=== PATIENT | male | born 1940 | race Caucasian/White ===

== ENCOUNTER → 2017-10-31 | Outpatient (CLI) | payer OTHER ==
[~2017-10-31] MED LIST: ASPIRIN81 M1 PO; CLOBETASOL PROP60 GM TP; COLACE100 MG PO; DEXILANT60 MG PO; ENDOCET 5-3251 EACH PO; FLEXERIL10 MG PO; LIPITOR80 MG PO; LYRICA200 MG PO; METAMUCIL POWD822 G1 PO; NAMENDA XR21 MG PO; OMEPRAZOLE40 M1 PO; ONE DAILY FOR1 EACH PO; STOOL SOFTENER100 M1 PO; STOOL SOFTENER240 MG PO
== END | disposition home or self-care (01) ==
LOC: AMB 07:41
PROC: 03BS0ZX Excision of Right Temporal Artery, Open Approach, Diagnostic (ICD-10-PCS; principal; 2017-10-31)
DX: R51 Headache (principal)
CPT/HCPCS: 88305; 88313

== ENCOUNTER 2018-03-20 04:35 | Emergency (ER) | payer OTHER ==
[~2018-03-20] VITALS: Ht 188 cm; Wt 113.9 kg
[2018-03-20 05:40] LABS: ALBUMIN 4.2 g/dL (3.2-4.8); CHLORIDE 105 mEq/L (99-109); POTASSIUM 4.5 mEq/L (3.7-5.4); SODIUM 142 mEq/L (136-147)
[2018-03-20 05:42] LABS: GLUCOSE 123 mg/dL (70-99); TOTAL PROTEIN 7.1 g/dL (6.4-8.3)
[2018-03-20 05:44] LABS: TOTAL BILIRUBIN 0.4 mg/dL (0.0-1.0)
[2018-03-20 05:46] LABS: ALKALINE PHOSPHATASE 136 IU/L (3-129); CREATININE 1.1 mg/dL (0.6-1.3); GFR ESTIMATE (CALCULATED) > 59 mL/min/ (58.99-99999)
[2018-03-20 05:46] LABS: HEMATOCRIT 44.3 % (38.0-50.0); MCH 32.4 PG (29.0-34.0); MCHC 33.9 G/DL (30.0-36.0); MCV 95.7 FL (86-99); PLATELET COUNT 186 K/uL (156-360); RBC DIS.WIDTH-CV 13.5 % (11.8-14.6); RBC DIS.WIDTH-SD 47.8 % (39-53); RED BLOOD COUNT 4.63 M/uL (4.00-5.50); WHITE BLOOD COUNT 11.8 K/uL (4.1-10.2)
[2018-03-20 05:47] LABS: UREA NITROGEN (BUN) 16 mg/dL (9-23)
[2018-03-20 05:48] LABS: AST (GOT) 23 IU/L (2-34)
[2018-03-20 05:49] LABS: ALT (GPT) 21 IU/L (3-49); LIPASE 18 U/L (1.0-51.0)
[2018-03-20 05:55] LABS: TROP-I INTERPRETATION NEGATIVE; TROPONIN-I < 0.01 ng/mL (0.0-0.30)
[2018-03-20 06:32] LABS: APPEARANCE SL.HAZY ((CLEAR)); BILIRUBIN NEGATIVE; BLOOD MODERATE; COLOR YELLOW ((YELLOW)); GLUCOSE (STRIP) NEGATIVE; KETONES NEGATIVE; LEUKOCYTES TRACE; NITRITE NEGATIVE; PROTEIN (STRIP) 30; SPECIFIC GRAVITY 1.026 (1.000-1.030)
[2018-03-20] MEDS ORDERED: CIPRO500 MG PO (06:40)
[2018-03-20] MEDS ORDERED: PERCOCET 5/31 TABLET PO (06:40)
[2018-03-20] MEDS ORDERED: ZOFRAN4 MG PO (06:40)
[2018-03-20] MEDS ORDERED: FLOMAX0.4 MG PO (06:40)
[2018-03-20 06:42] LABS: BACTERIA NONE SEEN /HPF; CALCIUM OXALATE CRYSTALS 2+ /HPF; EPITHELIAL CELLS RARE /HPF; HYALINE CASTS 0-5 /LPF; MUCUS 4+ /LPF; RED BLOOD CELLS TNTC /HPF (0-5); UCUL ADDED? YES; WHITE BLOOD CELLS 15-20 /HPF (0-5)
[2018-03-20 08:00] VITALS: BP 117/77
== END 2018-03-20 08:30 | disposition home or self-care (01) ==
LOC: EME 04:35
PROVIDERS: Emergency Medicine
DX: N13.2 Hydronephrosis with renal and ureteral calculous obstruction (principal); Z87.442 Personal history of urinary calculi; Z98.818 Other dental procedure status
CPT/HCPCS: 74176; 80053; 81003; 83690; 84484; 85027; 87086; 93005; 99281; 99285; J1885; J2270; J2405

== ENCOUNTER → 2018-04-04 | Outpatient (CLI) | payer MEDICARE, OTHER ==
[~2018-04-04] MED LIST changes: +CIPRO500 MG PO; +FLOMAX0.4 MG PO; +PERCOCET 5/31 TABLET PO; +ZOFRAN4 MG PO
== END | disposition home or self-care (01) ==
LOC: CDC 12:04
DX: Z01.810 Encounter for preprocedural cardiovascular examination (principal); I44.0 Atrioventricular block, first degree
CPT/HCPCS: 93000